=== PATIENT | female | born 2000 | race Two or more races ===

== ENCOUNTER 2022-10-09 15:18 | Emergency (ER) | payer OTHER ==
[~2022-10-09] VITALS: Ht 152.4 cm; Wt 56.0 kg
[2022-10-09 18:34] VITALS: BP 127/63
== END 2022-10-09 19:03 | disposition home or self-care (01) ==
LOC: ER 15:18
DX: S00.03XA Contusion of scalp, initial encounter (principal); R41.82 Altered mental status, unspecified; X58.XXXA Exposure to other specified factors, initial encounter; Y93.89 Activity, other specified; Y92.89 Other specified places as the place of occurrence of the external cause; Y99.8 Other external cause status
CPT/HCPCS: 70450